=== PATIENT | female | born 1995 ===

== ENCOUNTER 2016-07-30 18:02 | Emergency (ER) | payer BC ==
--- NOTE | 2016-07-30 18:08 | EDPHY ---
H & P Stated Complaint: RLQ pain since this morning,denies n/v Time Seen by Provider: 07/30/16 18:18 HPI/ROS: CHIEF COMPLAINT: Abdominal pain HISTORY OF PRESENT ILLNESS: This patient is a normally healthy 20-year-old female who presents to the Emergency Department complaining of acute onset right lower quadrant abdominal pain remaining constant throughout today. She describes her pain as exacerbated with movement and alleviated when lying down. The pain is an aching sensation. She denies fever, nausea, vomiting, diarrhea , urinary complaints, or abnormal vaginal discharge. She is sexually active and has an IUD in place, does not experience menstrual bleeding. No history of STD. She did have a yeast infection last week which she successfully treated with an OTC medication. She denies any surgical history. REVIEW OF SYSTEMS: A ten point review of systems was performed and is negative with the exception of the items mentioned in the HPI. Source: Patient Exam Limitations: No limitations - Personal History LMP (Females 10-55): IUD In Place Current Tetanus Diphtheria and Acellular Pertussis (TDAP): Yes - Medical/Surgical History PMH: Denies. 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 - Physical Exam Exam: General Appearance: Alert. Well-appearing. Vital signs reviewed: Hypertensive at 132/73. Eyes: Pupils equal and round, no conjunctival injection, no discharge. Anicteric. ENT, Mouth: Mucous membranes are moist, no oropharyngeal erythema or edema. Neck: No lymphadenopathy, supple. Respiratory: Lungs are clear to auscultation; no wheezes, rales, or rhonchi. Cardiovascular: Regular rate and rhythm; no murmur, rub, or gallop. Gastrointestinal: Abdomen is soft, RLQ tenderness distal to McBurney's point without guarding, no masses or organomegaly, bowel sounds normal. No palpable hernia. Pulses: 2+ femoral pulses. Skin: Warm and dry, no rashes on exposed skin, normal color. Back: Nontender to palpation over the thoracolumbar spine. No CVAT. Extremities: No lower extremity edema, no calf tenderness or swelling. Neurological: Alert and oriented. Moving all four extremities easily and equally. Psychiatric: Normal affect. Constitutional: Initial Vital Signs Temperature (C) 36.6 C 07/30/16 18:03 Heart Rate 74 07/30/16 18:03 Respiratory Rate 16 07/30/16 18:03 Blood Pressure 132/73 H 07/30/16 18:03 O2 Sat (%) 98 07/30/16 18:03 O2 Delivery Mode Room Air Allergies/Adverse Reactions: some antibiotic ?name Allergy (Intermediate, Uncoded 07/30/16 18:06) Hives Home Medications: Medication Instructions Recorded Levonorgestrel [Lorenza] 1 each IY 07/30/16 Medical Decision Making - Diagnostics Imaging Results: Pelvic ultrasound is normal. IUD is visualized and is in good position. There is a small amount of free fluid and the radiologist wonders if perhaps a follicular cyst was ruptured. There is no evidence of ovarian cyst or torsion. Dr. Chang reported the study to me. ED Course/Re-evaluation: This normally healthy 20-year-old female presents with complaint of constant RLQ pain worsened with movement beginning this morning. She denies fever or chills and is afebrile at presentation. She denies history of ovarian cysts. IUD is in place. Will proceed with labs and UA. If normal, plan for pelvic US for suspicion of right ovarian cyst. The patient declines medication for pain at this time. UA obtained and is normal. Labs are unremarkable. test is negative. Will proceed with pelvic US at this time. 2043: US of the pelvis is normal. There is a small amount of free fluid and the suggestion of a ruptured follicular cyst. No evidence of ovarian cyst at present and no signs of ovarian torsion. I discussed these results with the patient. I do not think that this is appendicitis. The location of her pain is not at McBurney's point, it is slightly distal to that site. She does not have guarding. There is no fever and her white blood cell count is normal. She is not so this is not an ectopic . She does not wish to proceed with any further testing at this time. We discussed doing a pelvic exam to assess for cervical motion tenderness or other indicators of pelvic inflammatory disease. She has a normal white count, is not febrile, and I think PID is unlikely. She does not have a vaginal discharge, per her report. She has an appointment with her physician early next week and prefers to wait on any further examination until then. She will be discharged home in good condition with customary return precautions and instructions to follow-up with her PCP as planned next week. - Data Points Laboratory Results: Laboratory Results 07/30/16 18:25 Departure - Departure Disposition: Home, Routine, Self-Care Clinical Impression: Abdominal pain Qualifiers: Abdominal location: right lower quadrant Qualified Code(s): R10.31 - Right lower quadrant pain Condition: Good Instructions: Acute Abdominal Pain (ED) Additional Instructions: 1. Follow-up with your primary care provider in 2-3 days if your pain does not completely subside. Keep your scheduled appointment next week. 2. Return to the Emergency Department if you experience worsening pain, high fever or chills, uncontrollable nausea or vomiting, severe diarrhea, or for other serious concerns. 3. As you know, we do not know what is causing your pain, but have not found a serious or surgical problem. Referrals: [facility],. [Clinic] - As per Instructions Report Scribed for: Marium Templeton Report Scribed by: Lindsay Bautista Date of Report: 07/30/16 Time of Report: 18:10 Physician Review and Approval Statement: 07/30/16 18:08 Portions of this note were transcribed by the anesthesiology medical doctor. I, Dr. Marium Templeton, personally performed the history, physical exam, and medical decision- making; and confirmed the accuracy of the information in the transcribed note.
[2016-07-30 18:35] LABS: % IMMATURE GRANULYOCYTES 0.1 % (0.0-1.1); ABSOLUTE IMMATURE GRANULOCYTES 0.01 10^3/uL (0.00-0.10); ADD DIFF? NO; ADD MORPH? NO; ADD SCAN? NO; ATYPICAL LYMPHOCYTE FLAG 10 (0-99); FRAGMENT RBC FLAG 0 (0-99); HEMATOCRIT 43.1 % (38.0-47.0); HEMOGLOBIN 14.5 g/dL (12.6-16.3); LEFT SHIFT FLG 0 (0-99); LIPEMIA HEMOLYSIS FLAG 80 (0-99); MEAN CELL HEMOGLOBIN 28.9 pg (27.9-34.1); MEAN CELL HEMOGLOBIN CONCENTR. 33.6 g/dL (32.4-36.7); MEAN PLATELET VOLUME 10.6 fL (8.7-11.7); PLATELET CLUMPS FLAG 10 (0-99); PLATELET COUNT 277 10^3/uL (150-400); RED BLOOD CELL COUNT 5.01 10^6/uL (4.18-5.33); RED CELL DISTRIBUTION WIDTH 13.2 % (11.5-15.2)
[2016-07-30 18:55] LABS: COLOR PALE YELLOW; LEUKOCYTE ESTERASE,URINE NEGATIVE (NEGATIVE); NITRITE,URINE NEGATIVE (NEGATIVE)
[2016-07-30 20:26] VITALS: BP 108/53; PULSE 72; RESP 14; O2SAT 97
[2016-07-30 20:58] VITALS: TEMP 98.2
== END 2016-07-30 20:57 | disposition home or self-care (01) ==
DX: R10.31 Right lower quadrant pain (principal)